=== PATIENT | male | born 1955 | race Caucasian/White ===

== ENCOUNTER 2018-11-04 17:32 | Emergency (ER) | payer OTHER ==
--- NOTE | 2018-11-04 17:41 | ER Report ---
History and Physical Time Seen By MD: 17:41 HPI/ROS CHIEF COMPLAINT: Shortness of breath HISTORY OF PRESENT ILLNESS: This is a 63-year-old male presents to the emergency department for shortness breath. Patient states that he lives in [place], who [address] [place] 2 days ago, has been fishing here locally, had some increased shortness of breath yesterday and last night, he feels that this is a viral process however she was so short of breath last night became concerned today. No fevers or chills. No nausea vomiting. No chest pain. No rashes. REVIEW OF SYSTEMS: Constitutional: No fever, no chills. Eyes: No discharge. ENT: No sore throat. Cardiovascular: No chest pain, no palpitations. Respiratory: As above. Gastrointestinal: No abdominal pain, no vomiting. Genitourinary: No hematuria. Musculoskeletal: No back pain. Skin: No rashes. Neurological: No headache. Allergies: Coded Allergies: No Known Drug Allergies (Unverified , 11/04/18) Home Meds Active Scripts Albuterol Sulfate 90 Mcg/Act (PROAIR HFA 90 MCG/ACT) 8.5 Gm Hfa.aer.ad, 1-2 PUFF IH 3-4XD, #1 INHALER 0 Refills Prov:MARCUS FRANKLIN [facility]- 11/04/18 Prednisone (PREDNISONE) 20 Mg Tablet, 20 MG PO BID, #10 TAB Prov:MARCUS FRANKLIN [facility]- 11/04/18 Amoxicillin/Pot Clav 875-125 Mg Tab (AUGMENTIN 875-125 TABLET) 1 Each Tablet, 1 TAB PO Q12H for 7 Days, #14 TAB 0 Refills Prov:MARCUS FRANKLIN [facility]- 11/04/18 Reported Medications Atorvastatin Calcium (LIPITOR) 10 Mg Tablet, 1 TAB PO QDAY, TAB 11/04/18 Past Medical/Surgical History Patient has a past medical and surgical history of exercise-induced asthma, seasonal allergies, bilateral shoulder surgery, elevated cholesterol. Reviewed Nurses Notes: Yes Constitutional Vital Sign - Last 24 Hours 11/04/18 11/04/18 11/04/18 11/04/18 17:35 17:45 18:00 18:10 Temp 98.2 Pulse 66 67 62 Resp 16 18 B/P (MAP) 133/76 121/83 (96) Pulse Ox 95 95 89 O2 Delivery Room Air 11/04/18 11/04/18 11/04/18 11/04/18 18:10 18:15 18:19 18:20 Pulse 62 67 66 Resp 18 Pulse Ox 94 99 90 O2 Delivery Room Air 11/04/18 11/04/18 11/04/18 11/04/18 18:30 18:50 19:00 19:15 Pulse 68 67 Resp 18 B/P (MAP) 127/72 (90) 126/85 (99) Pulse Ox 92 11/04/18 11/04/18 11/04/18 11/04/18 19:15 19:18 19:20 19:30 Pulse 66 66 Resp 18 B/P (MAP) 134/76 (95) Pulse Ox 93 99 O2 Delivery Room Air Physical Exam General Appearance: The patient is alert, has no immediate need for airway protection and no signs of toxicity. Eyes: Pupils equal and round no pallor or injection. ENT, Mouth: Mucous membranes are moist. Respiratory: There are no retractions, lungs are clear to auscultation. Cardiovascular: Regular rate and rhythm. No murmurs, clicks or rubs. Gastrointestinal: Abdomen is soft and non tender, no masses, bowel sounds normal. Neurological: Alert and oriented 4. Moving all extremities. Following all commands. No focal neuro deficits. Skin: Warm and dry, no rashes. Musculoskeletal: Neck is supple non tender. Extremities are nontender, nonswollen and have full range of motion. DIFFERENTIAL DIAGNOSIS: After history and physical exam differential diagnosis was considered for shortness of breath including but not limited to pulmonary infectious process, COPD, seasonal allergies, asthma, pulmonary embolus and congestive heart failure. Medical Decision Making Data Points Result Diagram: 11/04/18 1744 11/04/18 1744 Laboratory Hematology Test 11/04/18 17:44 Red Blood Count 5.20 M/uL (4.00-5.60) Mean Corpuscular Volume 86.3 fL (80.0-96.0) Mean Corpuscular Hemoglobin 29.1 pg (26.0-33.0) Mean Corpuscular Hemoglobin Concent 33.7 g/dL (32.0-36.0) Red Cell Distribution Width 13.5 % (11.5-14.5) Mean Platelet Volume 8.4 fL (7.2-11.1) Neutrophils (%) (Auto) 43.1 % (39.4-72.5) Lymphocytes (%) (Auto) 30.7 % (17.6-49.6) Monocytes (%) (Auto) 19.3 % (4.1-12.4) Eosinophils (%) (Auto) 5.0 % (0.4-6.7) Basophils (%) (Auto) 1.9 % (0.3-1.4) Nucleated RBC Relative Count (auto) 0.1 /100WBC Neutrophils # (Auto) 2.0 K/uL (2.0-7.4) Lymphocytes # (Auto) 1.4 K/uL (1.3-3.6) Monocytes # (Auto) 0.9 K/uL (0.3-1.0) Eosinophils # (Auto) 0.2 K/uL (0.0-0.5) Basophils # (Auto) 0.1 K/uL (0.0-0.1) Nucleated RBC Absolute Count (auto) 0.00 K/uL D-Dimer Quantitative (PE/DVT) 0.37 ug/ml (0-0.50) Sodium Level 140 mmol/L (137-145) Potassium Level 4.1 mmol/L (3.5-5.0) Chloride Level 102 mmol/L (98-107) Carbon Dioxide Level 27 mmol/L (22-30) Blood Urea Nitrogen 20 mg/dl (9-21) Creatinine 1.00 mg/dl (0.66-1.25) Glomerular Filtration Rate Calc > 60.0 Random Glucose 92 mg/dl (75-110) Calcium Level 8.9 mg/dl (8.4-10.2) Total Bilirubin 0.4 mg/dl (0.2-1.3) Aspartate Amino Transf (AST/SGOT) 42 U/L (0-35) Alanine Aminotransferase (ALT/SGPT) 56 U/L (0-56) Alkaline Phosphatase 77 U/L (0-126) Troponin I < 0.012 ng/ml Total Protein 7.6 g/dl (6.3-8.2) Albumin 4.5 g/dl (3.5-5.0) Chemistry Test 11/04/18 17:44 White Blood Count 4.7 k/uL (4.5-11.0) Red Blood Count 5.20 M/uL (4.00-5.60) Hemoglobin 15.1 g/dL (14.0-18.0) Hematocrit 44.8 % (42.0-52.0) Mean Corpuscular Volume 86.3 fL (80.0-96.0) Mean Corpuscular Hemoglobin 29.1 pg (26.0-33.0) Mean Corpuscular Hemoglobin Concent 33.7 g/dL (32.0-36.0) Red Cell Distribution Width 13.5 % (11.5-14.5) Platelet Count 204 K/uL (150-450) Mean Platelet Volume 8.4 fL (7.2-11.1) Neutrophils (%) (Auto) 43.1 % (39.4-72.5) Lymphocytes (%) (Auto) 30.7 % (17.6-49.6) Monocytes (%) (Auto) 19.3 % (4.1-12.4) Eosinophils (%) (Auto) 5.0 % (0.4-6.7) Basophils (%) (Auto) 1.9 % (0.3-1.4) Nucleated RBC Relative Count (auto) 0.1 /100WBC Neutrophils # (Auto) 2.0 K/uL (2.0-7.4) Lymphocytes # (Auto) 1.4 K/uL (1.3-3.6) Monocytes # (Auto) 0.9 K/uL (0.3-1.0) Eosinophils # (Auto) 0.2 K/uL (0.0-0.5) Basophils # (Auto) 0.1 K/uL (0.0-0.1) Nucleated RBC Absolute Count (auto) 0.00 K/uL D-Dimer Quantitative (PE/DVT) 0.37 ug/ml (0-0.50) Glomerular Filtration Rate Calc > 60.0 Calcium Level 8.9 mg/dl (8.4-10.2) Total Bilirubin 0.4 mg/dl (0.2-1.3) Aspartate Amino Transf (AST/SGOT) 42 U/L (0-35) Alanine Aminotransferase (ALT/SGPT) 56 U/L (0-56) Alkaline Phosphatase 77 U/L (0-126) Troponin I < 0.012 ng/ml Total Protein 7.6 g/dl (6.3-8.2) Albumin 4.5 g/dl (3.5-5.0) Coagulation Test 11/04/18 17:44 D-Dimer Quantitative (PE/DVT) 0.37 ug/ml EKG/Imaging EKG Interpretation 12 lead EKG: Time of EKG 1804. Rhythm: Normal sinus rhythm, ventricular rate 63 bpm. [place]: Left axis deviation. QRS: normal ST segments: No ST depression or elevation identified. No previous EKGs for comparison. Imaging PATIENT NAME: Shamir Ray : 1955 MR: [id number] V: [id number] EXAM DATE: ORDERING PHYSICIAN: MARCUS FRANKLIN TECHNOLOGIST: Location: [facility] Patient: Shamir Ray : 1955 Visit/Account:[id number] Date of Sevice: 11/04/2018 INDICATION: RESP DISTRESS. DATE: 11/04/2018 6:35 PM. TECHNIQUE: CHEST PA LAT COMPARISON: None FINDINGS: Heart size is normal. No effusion, consolidation, or pneumothorax. IMPRESSION: No focal pneumonia. Report Dictated By: Silvana Christy MD at 11/04/2018 6:35 PM Report E-Signed By: Silvana Christy MD at 11/04/2018 6:36 PM WSN:[email or web address] ED Course/Re-evaluation Clinical Indication for ER IV: IV Access ED Course The patient was admitted to room. A history of physical were obtained. Differential diagnoses were considered. An IV was started. A CBC, CMP, troponin and d-dimer obtained. Laboratory studies unremarkable, negative troponin, negative d-dimer. EKG showing normal sinus rhythm. Negative two-view chest x- ray. Patient was given a DuoNeb with some relief of his shortness of breath and cough. Patient was given 125 mg IV site Medrol, a repeat DuoNeb which did provide some increased relief of his symptoms. I did review the results with the patient, I told him this is likely a viral illness or seasonal allergies contributing to his symptoms, patient was given a prescription for albuterol inhaler, prednisone burst and since he is traveling in this area and is from [place], I did keep him a prescription for Augmentin he will fill this if symptoms become worse while he is out of town, instructed to follow-up with his primary care provider when he returns to [place]. I also recommended trying Claritin or Zyrtec, patient was agreeable with this plan of care and discharged. He is also instructed to return to ER for increased shortness breath or any other concerns. Decision to Disposition Date: Nov 04, 2018 Decision to Disposition Time: 18:56 Depart Departure Latest Vital Signs Vital Signs Date Time Temp Pulse Resp B/P (MAP) Pulse Ox O2 Delivery O2 Flow Rate FiO2 11/04/18 19:30 134/76 (95) 11/04/18 19:20 66 99 11/04/18 19:18 18 11/04/18 19:15 Room Air 11/04/18 17:35 98.2 Impression: Primary Impression: Upper respiratory infection Condition: Improved Disposition: HOME OR SELF-CARE New Scripts Albuterol Sulfate 90 Mcg/Act (PROAIR HFA 90 MCG/ACT) 8.5 Gm Hfa.aer.ad 1-2 PUFF IH 3-4XD, #1 INHALER 0 Refills Prov: MARCUS FRANKLIN [facility]- 11/04/18 Prednisone (PREDNISONE) 20 Mg Tablet 20 MG PO BID, #10 TAB Prov: MARCUS FRANKLIN [facility] 11/04/18 Amoxicillin/Pot Clav 875-125 Mg Tab (AUGMENTIN 875-125 TABLET) 1 Each Tablet 1 TAB PO Q12H for 7 Days, #14 TAB 0 Refills Prov: MARCUS FRANKLNI [facility] 11/04/18 Patient Instructions: Allergies (ED), Upper Respiratory Infection (ED) Additional Instructions: There were no concerning findings on the x-ray of your chest, EKG or laboratory studies. Please take the prednisone as prescribed. Use the albuterol inhaler every 4-6 hours as needed for cough and shortness of breath. If you need to fill the antibiotic, please do so a chore discretion, fevers, increased sinus pressure/pain. As the allergen index in this area is very high, you can also try Claritin or Zyrtec for the next week. Be sure to drink plenty of water. Get plenty of rest. Follow up with your primary care provider when you return to [place]. Return to the ED for any other concerns or worsening symptoms. Problem Qualifiers Primary Impression: Upper respiratory infection URI type: unspecified URI Qualified Codes: J06.9 - Acute upper respiratory infection, unspecified MARCUS FRANKLIN-BC Nov 04, 2018 17:41
[2018-11-04] MEDS ORDERED: ATOR10TA24 PO (17:42)
[2018-11-04] MEDS ORDERED: ALBUTEROL/IPRATROPIUM 3 ML NEB NEB ONE ×2 (17:50→19:05)
[2018-11-04 17:58] LABS: PLATELET COUNT, AUTOMATED 204 K/uL (150-450)
--- NOTE | 2018-11-04 18:18 | EKG ---
FACILITY: [facility] [place] PATIENT NAME: ODALYS ANN : [id number] MR: [id number] V: [id number] EXAM DATE: ORDERING PHYSICIAN: MARCUS FRANKLIN TECHNOLOGIST: DAPHNIE Test Reason : URI Blood Pressure : / mmHG Vent. Rate : 063 BPM Atrial Rate : 063 BPM P-R Int : 166 ms QRS Dur : 096 ms QT Int : 396 ms P-R-T Axes : 046 -31 044 degrees QTc Int : 405 ms Normal sinus rhythm Left axis deviation R wave progression consistent with old ant/sep AL vs lead placement No previous ECGs available Confirmed by MURALI WOODARD ([id number]) on 11/05/2018 1:02:12 AM Referred By: JIMMIE Confirmed By:MURALI WOODARD
--- NOTE | 2018-11-04 18:39 | RADIOLOGY IMAGING REPORT ---
FACILITY: [facility] PATIENT NAME: Shamir Ray : 1955 MR: [id number] V: [id number] EXAM DATE: ORDERING PHYSICIAN: MARCUS FRANKLIN TECHNOLOGIST: [place] [facility] [place] Patient: Shamir Ray : 1955 Visit/Account:[id number] Date of Sevice: 11/04/2018 INDICATION: RESP DISTRESS. DATE: 11/04/2018 6:35 PM. TECHNIQUE: CHEST PA LAT COMPARISON: None FINDINGS: Heart size is normal. No effusion, consolidation, or pneumothorax. IMPRESSION: No focal pneumonia. Report Dictated By: Silvana Christy MD at 11/04/2018 6:35 PM Report E-Signed By: Silvana Christy MD at 11/04/2018 6:36 PM WSN:[email or web address]
[2018-11-04] MEDS ORDERED: methylPREDNIS SUCC 125 MG/2ML IVP ONE (19:05)
[2018-11-04] MEDS ORDERED: ALBU8.5H IH (19:06)
[2018-11-04] MEDS ORDERED: AMOX-559 PO (19:06)
[2018-11-04] MEDS ORDERED: PRED20TA6 PO (19:06)
[2018-11-04 19:30] VITALS: BP 134/76
== END 2018-11-04 19:40 | disposition home or self-care (01) ==
LOC: ER 17:48
DX: J06.9 Acute upper respiratory infection, unspecified (principal)
CPT/HCPCS: 71046; 82040; 82247; 82310; 82374; 82435; 82565; 82947; 84075; 84132; 84155; 84295; 84450; 84460; 84484; 84520; 85025; 85379; 93005; 94640; 96374; 99284; J2930